=== PATIENT | male | born 1980 | race Caucasian/White ===

== ENCOUNTER 2020-04-19 12:07 | Emergency (ER) | payer MEDICAID, SELFPAY ==
[~2020-04-19] VITALS: Ht 177.8 cm; Wt 72.7 kg
[2020-04-19 13:08] VITALS: BP 126/81
== END 2020-04-19 13:10 | disposition home or self-care (01) ==
LOC: ED 12:29
DX: K02.9 Dental caries, unspecified (principal); R00.0 Tachycardia, unspecified
CPT/HCPCS: 99283